=== PATIENT | male | born 1955 | race Caucasian/White ===

== ENCOUNTER 2020-02-01 19:36 | Inpatient (IN) | payer BC, SELFPAY ==
[2020-02-01 19:43] VITALS: BP 161/94; PULSE 110; RESP 20; TEMP 36.7; O2SAT 94; BMI 20.7
--- NOTE | 2020-02-01 19:59 | ED_ITS ---
HPI - Psych General: Chief Complaint: Psychiatric Symptoms Stated Complaint: SI Time Seen by Provider: 02/01/20 19:37 Source: patient Mode of arrival: ambulatory Limitations: no limitations History of Present Illness: HPI Narrative: 64-year-old male states he has been having severe depression and does not feel like living anymore. He states been having suicidal thoughts for weeks and is voluntarily wanting to be admitted. He states he also chronic alcoholic and his last drink was today. Denies any worsening or improving factors. Associated symptoms: Reports depression Review of Systems Const: Denies: fever(s), chills, body aches or change in appetite Eyes: Denies: blurry vision or eye discomfort ENMT: Denies: throat pain or dental pain Card: Denies: chest pain Resp: Denies: dyspnea GI: Denies: abdominal pain, nausea, vomiting or diarrhea : Denies: dysuria Musc: Denies: neck pain or back pain Skin/Breast: Denies: rash Neuro: Denies: headache(s) Psych: Reports: depression Ruddy/Lymph: Denies: easy bruising All/Imm: Denies: urticaria Physical Exam Const: COMMON NORMALS: no acute distress, patient oriented x3 and healthy appearing HENMT: COMMON NORMALS: normocephalic and atraumatic HEAD & SCALP: normocephalic and atraumatic Eye: COMMON NORMALS: Equal, round and reactive pupils present and EOMs intact bilaterally PUPIL: Yes Equal, round and reactive pupils present Neck/C-Spine: COMMON NORMALS: full ROM and supple Chest: COMMONS NORMALS: normal inspection of the chest and normal palpation of entire chest wall Resp: COMMON NORMALS: normal respiratory effort, No retractions, No use of accessory muscles and clear to auscultation bilaterally AUSCULTATION: clear to auscultation bilaterally Cardio: COMMON NORMALS: regular rate, regular rhythm and No murmurs present (Cardio) RATE: regular rate RHYTHM: regular rhythm GI: COMMON NORMALS: Normal to inspection, nondistended, normoactive bowel sounds present, Soft to palpation, non-tender and no masses PALPATION: Yes Soft to palpation Extremity: COMMON NORMALS: normal to inspection and full ROM Neuro: COMMON NORMALS: patient oriented x3, moves all extremities and no focal motor deficits Psych: COMMON NORMALS: mental status grossly normal, Normal thought process present and cooperative MOOD & AFFECT: Yes depressed mood THOUGHT PROCESS: Normal thought process present Skin: COMMON NORMALS: no rashes or lesions noted and no wounds GENERAL SKIN EXAM: no rashes or lesions noted MDM - Psych MDM Narrative: Medical decision making narrative: Patient presents here with suicidal ideation along with alcohol intoxication. Patient is medically cleared and well-appearing here. He did have a fall a week ago CT his head was normal. Spoke to Dr. Zurita and will admit to the psychiatric unit. Lab Data: Labs: Lab Results 02/01/20 02/01/20 Range/Units 20:05 20:05 WBC 6.5 (4.0-10.0) 10^3/ uL RBC 3.17 L (4.1-5.3) 10^6/u L Hgb 11.3 L (11.7-16.6) g/dL Hct 34.0 L (42.0-52.0) % MCV 107.3 H (80-94) fL MCH 35.6 H (28.0-34.0) pg MCHC 33.2 (30.0-36.0) g/dL RDW 13.7 (12.1-15.1) % Plt Count 206 (130-400) 10^3/c mm MPV 9.3 (7.4-10.4) fL Neut % (Auto) 35.8 % Lymph % (Auto) 46.1 % [place] % (Auto) 6.9 % Eos % (Auto) 7.9 % Baso % (Auto) 1.5 % Neut # (Auto) 2.32 (1.8-7.7) 10^3/u L Lymph # (Auto) 3.0 (0.8-4.8) 10^3/u L [place] # (Auto) 0.5 (0.2-0.9) 10^3/u L Eos # (Auto) 0.5 (0.0-0.8) 10^3/u L Baso # (Auto) 0.1 (0.0-0.1) 10^3/u L Nucleated RBC % (a uto) 0 % Nucleated RBCs # 0.0 /100WBC Sodium 147 H (136-145) mmol/L Potassium 3.9 (3.5-5.1) mmol/L Chloride 109 H (98-107) mmol/L Carbon Dioxide 22 (22-29) mmol/L Anion Gap 19.9 H (5-19) BUN 12 (8-23) mg/dL Creatinine 0.6 L (0.7-1.2) mg/dL GFR Calculation 136.1 H (90-130) mL/min Glucose 176 H (65-115) mg/dL Calculated Osmolal ity 308 H (285-295) mOsm/k g Calcium 9.4 (8.5-10.5) mg/dL Total Bilirubin 0.3 (0.15-1.2) mg/dL AST 137 H (0-40) U/L ALT 102 H (0-41) U/L Alkaline Phosphata se 105 (40-130) IU/L Total Protein 7.2 (6.6-8.7) g/dL Albumin 4.1 (3.5-5.2) g/dL Globulin 3.1 (1.3-4.6) g/dL Salicylates < 0.3 L (3-10) mg/dL Acetaminophen < 5.0 L (10-30) ug/mL Ethyl Alcohol 275 H (0-10) mg/dL Imaging Data^: CT Head: Radiologist's impression: [place] [address] CT Scan Report Signed Patient: Mason Bradshaw Unit #: [id number] : 1955 Age/Sex: 64 / M ADM Date: 02/01/20 Loc: [employer]EN [employer] Room/Bed: [facility] Attending Dr: Shamir Zurita MD Ordering Provider/Ordering MD: Paddy Hill MD Date of Service: 02/01/20 Procedure(s): CT head wo con* [id number] Accession Number(s): [id number] Report Number: [id number] PROCEDURE INFORMATION: Exam: CT Head Without Contrast Exam date and time: 02/01/2020 8:11 PM Age: 64 years old Clinical indication: Injury or trauma; Blunt trauma (contusions or hematomas); Without loss of consciousness; Patient HX: C/O fall hitting R side of head approx. 10 days ago unsure loc but C/O OCHOA; Additional info: Head injury TECHNIQUE: Imaging protocol: Computed tomography of the head without contrast. Radiation optimization: All CT scans at this facility use at least one of these dose optimization techniques: automated exposure control; mA and/or kV adjustment per patient size (includes targeted exams where dose is matched to clinical indication); or iterative reconstruction. COMPARISON: CT head wo con* [id number] 11/07/2017 11:33 AM RADIATION DOSE METRICS: Total DLP (mGy-cm): 883.75 FINDINGS: Brain: There is no evidence of intracranial hemorrhage. No abnormal extra-axial fluid collections are identified. No mass effect or midline shift is seen. Benign basal ganglia calcifications are noted. Rodas-white differentiation is preserved throughout. Cerebral ventricles: No ventriculomegaly. Bones/joints: Unremarkable. No acute fracture. Paranasal sinuses: There is sinus mucosal disease, primarily involving the left sphenoid sinus, with no definite air-fluid level identified. Mastoid air cells: There is no mastoid effusion detected. Vasculature: Atherosclerotic vascular disease is noted at the level of the skull base. Soft tissues: Unremarkable. CT/CT head wo con* [id number] IMPRESSION: No acute intracranial pathology demonstrated by CT. Discharge Plan Discharge Patient Disposition: Admitted As Inpatient Admit Provider: Shamir Zurita Clinical Impression: Suicidal ideation, Alcohol abuse Condition: Stable Coding Level of Care Code ED Tester [employer] for Chg Fwd Exam Comprehensive
[2020-02-01] MEDS: multivitamin therapeutic Tablet 1 TAB PO (20:06)
--- NOTE | 2020-02-01 20:10 | CTR_ITS ---
PROCEDURE INFORMATION: Exam: CT Head Without Contrast Exam date and time: 02/01/2020 8:11 PM Age: 64 years old Clinical indication: Injury or trauma; Blunt trauma (contusions or hematomas); Without loss of consciousness; Patient HX: C/O fall hitting R side of head approx. 10 days ago unsure loc but C/O OCHOA; Additional info: Head injury TECHNIQUE: Imaging protocol: Computed tomography of the head without contrast. Radiation optimization: All CT scans at this facility use at least one of these dose optimization techniques: automated exposure control; mA and/or kV adjustment per patient size (includes targeted exams where dose is matched to clinical indication); or iterative reconstruction. COMPARISON: CT head wo con* [id number] 11/07/2017 11:33 AM RADIATION DOSE METRICS: Total DLP (mGy-cm): 883.75 FINDINGS: Brain: There is no evidence of intracranial hemorrhage. No abnormal extra-axial fluid collections are identified. No mass effect or midline shift is seen. Benign basal ganglia calcifications are noted. Rodas-white differentiation is preserved throughout. Cerebral ventricles: No ventriculomegaly. Bones/joints: Unremarkable. No acute fracture. Paranasal sinuses: There is sinus mucosal disease, primarily involving the left sphenoid sinus, with no definite air-fluid level identified. Mastoid air cells: There is no mastoid effusion detected. Vasculature: Atherosclerotic vascular disease is noted at the level of the skull base. Soft tissues: Unremarkable. CT/CT head wo con* [id number] IMPRESSION: No acute intracranial pathology demonstrated by CT. Radiation Dose CTDIVOL = (mGy): DLP = 883.75 (mGy-cm)
[2020-02-01 20:14] LABS: Basophils # 0.1 10^3/uL (0.0-0.1); Basophils % 1.5 %; Eosinophils # 0.5 10^3/uL (0.0-0.8); Eosinophils % 7.9 %; Hemoglobin 11.3 g/dL (11.7-16.6); Lymphocytes % 46.1 %; Mean Corpuscular HGB Conc 33.2 g/dL (30.0-36.0); Mean Corpuscular Hemoglobin 35.6 pg (28.0-34.0); Mean Corpuscular Volume 107.3 fL (80-94); Mean Platelet Volume 9.3 fL (7.4-10.4); Monocytes # 0.5 10^3/uL (0.2-0.9); Monocytes % 6.9 %; Neutrophils # 2.32 10^3/uL (1.8-7.7); Neutrophils % 35.8 %; Nucleated Red Blood Cells % 0 %; Platelet Count 206 10^3/cmm (130-400); Red Blood Count 3.17 10^6/uL (4.1-5.3); Red Cell Distribution Width 13.7 % (12.1-15.1); White Blood Count 6.5 10^3/uL (4.0-10.0)
[2020-02-01 20:33] LABS: Alanine Aminotransferase 102 U/L (0-41); Albumin Level 4.1 g/dL (3.5-5.2); Alcohol Level 275 mg/dL (0-10); Alkaline Phosphatase 105 IU/L (40-130); Anion Gap 19.9 (5-19); Aspartate Amino Transferase 137 U/L (0-40); Blood Urea Nitrogen 12 mg/dL (8-23); Calcium 9.4 mg/dL (8.5-10.5); Carbon Dioxide 22 mmol/L (22-29); Chloride 109 mmol/L (98-107); Globulin 3.1 g/dL (1.3-4.6); Glomerular Filtration Rate 136.1 mL/min (90-130); Glucose 176 mg/dL (65-115); Osmolality Calculated 308 mOsm/kg (285-295); Potassium 3.9 mmol/L (3.5-5.1); Sodium 147 mmol/L (136-145); Total Bilirubin 0.3 mg/dL (0.15-1.2); Total Protein 7.2 g/dL (6.6-8.7)
--- NOTE | 2020-02-01 20:36 | PC.NURSE ---
PATIENT TO CT
[2020-02-01 20:37] LABS: Acetaminophen < 5.0 ug/mL (10-30); Salicylate < 0.3 mg/dL (3-10)
--- NOTE | 2020-02-01 21:30 | PC.NURSE ---
called report to Dorian in NPU
[2020-02-01 21:33] VITALS: BP 126/67; PULSE 86; RESP 18; O2SAT 95
[2020-02-01 21:45] VITALS: BP 122/78; PULSE 93; RESP 18; TEMP 36.6; O2SAT 96
[2020-02-01 22:00] VITALS: BP 122/78; PULSE 93; RESP 18; TEMP 36.6; O2SAT 96
[2020-02-01] MEDS: hyDROXYzine 25 mg Capsule 50 MG PO (22:40)
[2020-02-01] MEDS: trazodone 50 mg Tablet PO (22:41)
[2020-02-01 23:46] LABS: Amphetamines Screen Urine Negative (Negative); Barbiturates Screen Urine Negative (Negative); Benzodiazepines Screen Urine Negative (Negative); Cocaine Screen Urine Negative (Negative); Opiate Screen Urine Negative (Negative); PCP Screen Urine Negative (Negative); THC Screen Urine Negative (Negative)
[2020-02-02 06:00] VITALS: BP 148/66; PULSE 93; RESP 17; TEMP 36.4; O2SAT 95
[2020-02-02 06:48] LABS: Glucose Point of Care 105 mg/dL (70-110)
[2020-02-02] MEDS: fluoxetine 10 mg Capsule PO (08:25)
[2020-02-02 11:40] LABS: Glucose Point of Care 149 mg/dL (70-110)
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
[2020-02-02 14:20] VITALS: BP 111/70; PULSE 90; RESP 18; TEMP 36.7; O2SAT 99
[2020-02-02] MEDS: fluoxetine 20 mg Capsule PO (14:53)
[2020-02-02 17:12] LABS: Glucose Point of Care 108 mg/dL (70-110)
[2020-02-02 20:23] LABS: Glucose Point of Care 175 mg/dL (70-110)
[2020-02-02] MEDS: hyDROXYzine 25 mg Capsule 50 MG PO (21:31)
[2020-02-02] MEDS: trazodone 50 mg Tablet PO (21:31)
[2020-02-02] MEDS: acetaminophen 325 mg Tablet 650 MG PO (21:34)
[2020-02-02 22:00] VITALS: BP 132/68; PULSE 75; RESP 16; TEMP 36.7; O2SAT 97
[2020-02-03 06:00] VITALS: BP 122/72; PULSE 66; RESP 17; TEMP 36.8; O2SAT 96
[2020-02-03] MEDS: glimepiride 2 mg Tablet PO (06:39)
[2020-02-03 07:01] LABS: Glucose Point of Care 126 mg/dL (70-110)
[2020-02-03] MEDS: fluoxetine 20 mg Capsule PO (07:51)
[2020-02-03] MEDS: fluoxetine 10 mg Capsule PO (07:52)
[2020-02-03 11:45] LABS: Glucose Point of Care 119 mg/dL (70-110)
[2020-02-03 14:00] VITALS: BP 113/69; PULSE 79; RESP 18; TEMP 36.6; O2SAT 98
[2020-02-03 14:29] VITALS: BP 122/72; PULSE 66; RESP 17; TEMP 36.8; O2SAT 96
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
[2020-02-03 16:51] LABS: Glucose Point of Care 127 mg/dL (70-110)
== END 2020-02-03 17:46 | disposition home or self-care (01) | DRG 880 ==
LOC: ER 20:47 → NP 20:49
PROVIDERS: Admitting Provider Psychiatry & Neurology Psychiatry; Emergency Provider Emergency Medicine; Visit Provider Psychiatry & Neurology Psychiatry
DX: F41.8 Other specified anxiety disorders (principal); R45.851 Suicidal ideations; F68.8 Other specified disorders of adult personality and behavior; F10.20 Alcohol dependence, uncomplicated; E11.9 Type 2 diabetes mellitus without complications
CPT/HCPCS: 12345; 36416; 70450; 80053; 80306; 80307; 82962; 85025; 96372; 99284; J1815; J3411

== ENCOUNTER 2020-04-20 17:52 | Inpatient (IN) | payer OTHER, SELFPAY ==
[2020-04-20 18:23] VITALS: BP 163/88; PULSE 122; RESP 18; TEMP 36.7; O2SAT 96; BMI 17.3
--- NOTE | 2020-04-20 18:50 | W.ED.PSYCH ---
HPI - Psych General: Chief Complaint: Psychiatric Symptoms Stated Complaint: Stress Time Seen by Provider: 04/20/20 18:45 Source: patient Mode of arrival: ambulatory Limitations: no limitations History of Present Illness: HPI Narrative: 65-year-old male states that he has been having increasing depression and some suicidal thoughts. He is a chronic alcoholic and states he just wants to get away from drinking and from home. Patient states has been admitted to the stress unit in the past and would like to go back. He denies any specific plan. Denies any vomiting or diarrhea. He states his last drink was this morning. He has had some slight nausea. Associated symptoms: Reports depression and suicidal ideation Review of Systems Const: Denies: fever(s), chills, body aches or change in appetite Eyes: Denies: blurry vision or eye discomfort ENMT: Denies: throat pain or dental pain Card: Denies: chest pain Resp: Denies: dyspnea GI: Denies: abdominal pain, nausea, vomiting or diarrhea : Denies: dysuria Musc: Denies: neck pain or back pain Skin/Breast: Denies: rash Neuro: Denies: headache(s) Psych: Reports: depression and suicidal ideation Ruddy/Lymph: Denies: easy bruising All/Imm: Denies: urticaria Physical Exam Const: COMMON NORMALS: no acute distress, patient oriented x3 and healthy appearing HENMT: COMMON NORMALS: normocephalic and atraumatic HEAD & SCALP: normocephalic and atraumatic Eye: COMMON NORMALS: Equal, round and reactive pupils present and EOMs intact bilaterally PUPIL: Yes Equal, round and reactive pupils present Neck/C-Spine: COMMON NORMALS: full ROM and supple Chest: COMMONS NORMALS: normal inspection of the chest and normal palpation of entire chest wall Resp: COMMON NORMALS: normal respiratory effort, No retractions, No use of accessory muscles and clear to auscultation bilaterally AUSCULTATION: clear to auscultation bilaterally Cardio: COMMON NORMALS: regular rate, regular rhythm and No murmurs present (Cardio) RATE: regular rate RHYTHM: regular rhythm GI: COMMON NORMALS: Normal to inspection, nondistended, normoactive bowel sounds present, Soft to palpation, non-tender and no masses PALPATION: Yes Soft to palpation Extremity: COMMON NORMALS: normal to inspection and full ROM Neuro: COMMON NORMALS: patient oriented x3, moves all extremities and no focal motor deficits Psych: COMMON NORMALS: mental status grossly normal, Normal thought process present and cooperative THOUGHT PROCESS: Normal thought process present THOUGHT CONTENT: Yes Suicidality present Skin: COMMON NORMALS: no rashes or lesions noted and no wounds GENERAL SKIN EXAM: no rashes or lesions noted MDM - Psych MDM Narrative: Medical decision making narrative: Mason presents here with suicidal ideations. Patient voluntarily wants to get help. He does have a history of alcohol abuse as well. I spoke to psychiatrist Dr. Zurita and will admit patient to the psych cazares. He is well-appearing here and is medically cleared. Lab Data: Labs: Lab Results 04/20/20 04/20/20 04/20/20 Range/Units 18:53 18:53 18:53 WBC 5.8 (4.0-10.0) 10^3/ uL RBC 5.01 (4.1-5.3) 10^6/u L Hgb 16.8 H (11.7-16.6) g/dL Hct 48.7 (42.0-52.0) % MCV 97.2 H (80-94) fL MCH 33.5 (28.0-34.0) pg MCHC 34.5 (30.0-36.0) g/dL RDW 11.9 L (12.1-15.1) % Plt Count 180 (130-400) 10^3/c mm MPV 9.7 (7.4-10.4) fL Neut % (Auto) 49.5 % Lymph % (Auto) 36.9 % [place]affee % (Auto) 10.0 % Eos % (Auto) 1.5 % Baso % (Auto) 1.9 % Neut # (Auto) 2.88 (1.8-7.7) 10^3/u L Lymph # (Auto) 2.2 (0.8-4.8) 10^3/u L [place] # (Auto) 0.6 (0.2-0.9) 10^3/u L Eos # (Auto) 0.1 (0.0-0.8) 10^3/u L Baso # (Auto) 0.1 (0.0-0.1) 10^3/u L Nucleated RBC % (a uto) 0 % Nucleated RBCs # 0.0 /100WBC Sodium 136 (136-145) mmol/L Potassium 3.8 (3.5-5.1) mmol/L Chloride 94 L (98-107) mmol/L Carbon Dioxide 25 (22-29) mmol/L Anion Gap 20.8 H (5-19) BUN 15 (8-23) mg/dL Creatinine 0.6 L (0.7-1.2) mg/dL GFR Calculation 135.6 H (90-130) mL/min Glucose 329 H (65-115) mg/dL Calculated Osmolal ity 296 H (285-295) mOsm/k g Calcium 9.9 (8.5-10.5) mg/dL Total Bilirubin 0.2 (0.15-1.2) mg/dL AST 92 H (0-40) U/L ALT 79 H (0-41) U/L Alkaline Phosphata se 117 (40-130) IU/L Total Protein 7.5 (6.6-8.7) g/dL Albumin 4.2 (3.5-5.2) g/dL Globulin 3.3 (1.3-4.6) g/dL Urine Color (Yellow) Urine Appearance (CLEAR) Urine pH (5-7) Ur Specific Gravit y (1.005-1.030) Urine Protein (Negative) Urine Glucose (UA) (Normal) Urine Ketones (Negative) Urine Blood (Negative) Urine Nitrate (Negative) Urine Bilirubin (Negative) Urine Urobilinogen (Negative) mg/dL Ur Leukocyte Sarah ase (Negative) Salicylates < 0.3 L (3-10) mg/dL Urine Opiates Scre en Negative (Negative) ng/mL Acetaminophen < 5.0 L (10-30) ug/mL Ur Barbiturates Sc reen Negative (Negative) ng/mL Ur Phencyclidine S crn Negative (Negative) ng/mL Ur Amphetamines Sc reen Negative (Negative) ng/mL U Benzodiazepines Scrn Negative (Negative) ng/mL Urine Cocaine Scre en Negative (Negative) ng/mL U Marijuana (THC) Screen Negative (Negative) ng/mL Ethyl Alcohol 137 H (0-10) mg/dL 04/20/20 Range/Units 18:53 WBC (4.0-10.0) 10^3/ uL RBC (4.1-5.3) 10^6/u L Hgb (11.7-16.6) g/dL Hct (42.0-52.0) % MCV (80-94) fL MCH (28.0-34.0) pg MCHC (30.0-36.0) g/dL RDW (12.1-15.1) % Plt Count (130-400) 10^3/c mm MPV (7.4-10.4) fL Neut % (Auto) % Lymph % (Auto) % [place] % (Auto) % Eos % (Auto) % Baso % (Auto) % Neut # (Auto) (1.8-7.7) 10^3/u L Lymph # (Auto) (0.8-4.8) 10^3/u L [place] # (Auto) (0.2-0.9) 10^3/u L Eos # (Auto) (0.0-0.8) 10^3/u L Baso # (Auto) (0.0-0.1) 10^3/u L Nucleated RBC % (a uto) % Nucleated RBCs # /100WBC Sodium (136-145) mmol/L Potassium (3.5-5.1) mmol/L Chloride (98-107) mmol/L Carbon Dioxide (22-29) mmol/L Anion Gap (5-19) BUN (8-23) mg/dL Creatinine (0.7-1.2) mg/dL GFR Calculation (90-130) mL/min Glucose (65-115) mg/dL Calculated Osmolal ity (285-295) mOsm/k g Calcium (8.5-10.5) mg/dL Total Bilirubin (0.15-1.2) mg/dL AST (0-40) U/L ALT (0-41) U/L Alkaline Phosphata se (40-130) IU/L Total Protein (6.6-8.7) g/dL Albumin (3.5-5.2) g/dL Globulin (1.3-4.6) g/dL Urine Color Yellow (Yellow) Urine Appearance Clear (CLEAR) Urine pH 5 (5-7) Ur Specific Gravit y 1.025 (1.005-1.030) Urine Protein Neg (Negative) Urine Glucose (UA) 4+ H (Normal) Urine Ketones 1+ H (Negative) Urine Blood Neg (Negative) Urine Nitrate Negative (Negative) Urine Bilirubin Neg (Negative) Urine Urobilinogen Norm (Negative) mg/dL Ur Leukocyte Sarah ase Negative (Negative) Salicylates (3-10) mg/dL Urine Opiates Scre en (Negative) ng/mL Acetaminophen (10-30) ug/mL Ur Barbiturates Sc reen (Negative) ng/mL Ur Phencyclidine S crn (Negative) ng/mL Ur Amphetamines Sc reen (Negative) ng/mL U Benzodiazepines Scrn (Negative) ng/mL Urine Cocaine Scre en (Negative) ng/mL U Marijuana (THC) Screen (Negative) ng/mL Ethyl Alcohol (0-10) mg/dL Discharge Plan Discharge Patient Disposition: Admitted As Inpatient Clinical Impression: Suicidal ideation, Alcohol abuse Condition: Stable Coding Level of Care Code ED Competency Evaluated Nurse Aide for Crys Fwd Exam Comprehensive
[2020-04-20 19:08] LABS: Add Urine Microscopic? NO
[2020-04-20] MEDS: LORazepam 2 mg/mL INJ 1 mL 1 MG IVP (19:08)
[2020-04-20 19:11] LABS: Basophils # 0.1 10^3/uL (0.0-0.1); Basophils % 1.9 %; Eosinophils # 0.1 10^3/uL (0.0-0.8); Eosinophils % 1.5 %; Hematocrit 48.7 % (42.0-52.0); Hemoglobin 16.8 g/dL (11.7-16.6); Lymphocytes # 2.2 10^3/uL (0.8-4.8); Lymphocytes % 36.9 %; Mean Corpuscular HGB Conc 34.5 g/dL (30.0-36.0); Mean Corpuscular Hemoglobin 33.5 pg (28.0-34.0); Mean Corpuscular Volume 97.2 fL (80-94); Mean Platelet Volume 9.7 fL (7.4-10.4); Monocytes # 0.6 10^3/uL (0.2-0.9); Neutrophils # 2.88 10^3/uL (1.8-7.7); Neutrophils % 49.5 %; Nucleated Red Blood Cells % 0 %; Platelet Count 180 10^3/cmm (130-400); Red Blood Count 5.01 10^6/uL (4.1-5.3); Red Cell Distribution Width 11.9 % (12.1-15.1); White Blood Count 5.8 10^3/uL (4.0-10.0)
[2020-04-20 19:16] LABS: Bilirubin Urine Neg (Negative); Blood Urine Neg (Negative); Glucose Urine UA 4+ (Normal); Ketones Urine 1+ (Negative); Leukocyte Esterase Urine Negative (Negative); Nitrate Urine Negative (Negative); Protein Urine Neg (Negative); Specific Gravity, Urine 1.025 (1.005-1.030); Urine Appearance Clear (CLEAR); Urine Color Yellow (Yellow); Urobilinogen Urine Norm (Negative); pH Urine 5 (5-7)
[2020-04-20 19:19] LABS: Amphetamines Screen Urine Negative (Negative); Barbiturates Screen Urine Negative (Negative); Benzodiazepines Screen Urine Negative (Negative); Cocaine Screen Urine Negative (Negative); Opiate Screen Urine Negative (Negative); PCP Screen Urine Negative (Negative); THC Screen Urine Negative (Negative)
[2020-04-20 19:38] LABS: Alanine Aminotransferase 79 U/L (0-41); Albumin Level 4.2 g/dL (3.5-5.2); Alcohol Level 137 mg/dL (0-10); Alkaline Phosphatase 117 IU/L (40-130); Anion Gap 20.8 (5-19); Aspartate Amino Transferase 92 U/L (0-40); Blood Urea Nitrogen 15 mg/dL (8-23); Calcium 9.9 mg/dL (8.5-10.5); Carbon Dioxide 25 mmol/L (22-29); Chloride 94 mmol/L (98-107); Globulin 3.3 g/dL (1.3-4.6); Glomerular Filtration Rate 135.6 mL/min (90-130); Glucose 329 mg/dL (65-115); Osmolality Calculated 296 mOsm/kg (285-295); Potassium 3.8 mmol/L (3.5-5.1); Sodium 136 mmol/L (136-145); Total Bilirubin 0.2 mg/dL (0.15-1.2); Total Protein 7.5 g/dL (6.6-8.7)
[2020-04-20 19:40] LABS: Acetaminophen < 5.0 ug/mL (10-30); Salicylate < 0.3 mg/dL (3-10)
[2020-04-20 20:25] VITALS: BP 145/85; PULSE 104; RESP 14; O2SAT 96
[2020-04-20 21:31] VITALS: BP 134/76; PULSE 120; RESP 17; TEMP 36.9; O2SAT 96
[2020-04-20 21:32] LABS: Glucose Point of Care 334 mg/dL (70-110)
[2020-04-20 22:00] VITALS: BP 134/76; PULSE 120; RESP 17; TEMP 36.9; O2SAT 96
[2020-04-21 06:00] VITALS: BP 147/87; PULSE 99; RESP 18; TEMP 36.7; O2SAT 95
[2020-04-21 07:38] LABS: Glucose Point of Care 158 mg/dL (70-110)
[2020-04-21] MEDS: ondansetron 4 MG Tablet PO (08:27)
[2020-04-21] MEDS: atorvastatin 40 mg Tablet 20 MG PO (08:27)
[2020-04-21] MEDS: fluoxetine 20 mg Capsule PO (08:27)
[2020-04-21 11:40] LABS: Glucose Point of Care 152 mg/dL (70-110)
[2020-04-21 14:00] VITALS: BP 137/83; PULSE 94; RESP 18; TEMP 36.7; O2SAT 96
[2020-04-21] MEDS: acetaminophen 325 mg Tablet 650 MG PO (16:32)
[2020-04-21 16:35] LABS: Glucose Point of Care 128 mg/dL (70-110)
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
[2020-04-21 20:05] LABS: Glucose Point of Care 145 mg/dL (70-110)
[2020-04-21 20:08] VITALS: BP 128/80; PULSE 89; RESP 18; TEMP 36.6; O2SAT 96
[2020-04-21] MEDS: trazodone 50 mg Tablet PO (23:10)
[2020-04-21] MEDS: hyDROXYzine 25 mg Capsule 50 MG PO (23:10)
[2020-04-22 06:00] VITALS: BP 99/66; PULSE 116; RESP 15; TEMP 37.2; O2SAT 96
[2020-04-22 06:35] LABS: Glucose Point of Care 139 mg/dL (70-110)
[2020-04-22] MEDS: fluoxetine 20 mg Capsule PO (08:15)
[2020-04-22] MEDS: atorvastatin 40 mg Tablet 20 MG PO (08:15)
[2020-04-22 11:20] LABS: Glucose Point of Care 157 mg/dL (70-110)
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
[2020-04-22 16:25] VITALS: BP 99/66; PULSE 116; RESP 15; TEMP 37.2; O2SAT 96
[2020-04-22 16:42] LABS: Glucose Point of Care 143 mg/dL (70-110)
== END 2020-04-22 17:30 | disposition home or self-care (01) | DRG 881 ==
LOC: ER 20:18 → NP 20:54
PROVIDERS: Nurse Practitioner Family; Admitting Provider Psychiatry & Neurology Psychiatry; Emergency Provider Emergency Medicine; Visit Provider Psychiatry & Neurology Psychiatry
DX: F32.9 Major depressive disorder, single episode, unspecified (principal); R45.851 Suicidal ideations; F10.10 Alcohol abuse, uncomplicated; Z81.1 Family history of alcohol abuse and dependence; E11.9 Type 2 diabetes mellitus without complications; F41.8 Other specified anxiety disorders; Z63.0 Problems in relationship with spouse or partner
CPT/HCPCS: 12345; 36416; 80053; 80306; 80307; 81003; 82962; 85025; 96372; 99284; J1815; J2060; J3411; Q0162

== ENCOUNTER 2022-03-01 07:19 | Outpatient (CLI) | payer MEDICARE, SELFPAY ==
--- NOTE | 2022-03-01 07:36 | CT_ITS ---
WS: [id number] CT ABDOMEN PELVIS TECHNIQUE: Contrast-enhanced CT of the abdomen and pelvis with coronal and sagittal reformatted image s. CLINICAL INFORMATION: INDIRECT INGUINAL HERNIIA COMPARISON: CT 2019 DLP: 1061.[address] scans at [facility] use at least one of these dose optimization techniques: automated e xposure control; mA and/or kV adjustment per patient size (includes targeted exams where dose is matc hed to clinical indication); or iterative reconstruction. FINDINGS: No recurrent hernia in the RIGHT inguinal region. No direct or indirect inguinal hernias visualized b ilaterally. Tiny fat-containing umbilical hernia. No ventral abdominal wall hernias. Urine distended bladder. Prominent prostate measuring 4.7 cm with calcifications. Normal sigmoid colon. Dependent atelectasis in the lung bases. Mild diffuse fatty infiltration the liver. Normal portal vei n and splenic vein. Normal gallbladder. Normal GE junction. Splenic granulomas. Adrenal glands are no rmal. Normal renal parenchymal enhancement. No hydronephrosis. Moderate aortic atheromatous disease. Slightly ectatic distal abdominal aorta measuring 2.5 cm in maximum AP dimension. Normal pancreatic p arenchymal enhancement. Degenerative endplate-type changes at L2-L3 and L5-S1 with endplate sclerosis. Lumbar curve. CT/CT abdomen pelvis w con* [id number] IMPRESSION: 1. No evidence of recurrence inguinal hernia. 2. Tiny fat-containing umbilical hernia. 3. Moderate aortic atheromatous disease with slightly ectatic distal abdominal aorta measuring 2.5 cm in maximum dimension. 4. Enlarged prostate measuring 4.7 CCM. Recommend correlation PSA. 5. No other remarkable findings.
[2022-03-01] MEDS: iohexol 350 mg/mL 100 mL Btl IV (09:07)
[2022-03-01] MEDS: iohexol 350 mg/mL 100 mL Btl PO (09:08)
== END 2022-03-01 07:20 | disposition home or self-care (01) ==
PROVIDERS: PCP Physician Assistant; Visit Provider Physician Assistant
DX: K40.90 Unilateral inguinal hernia, without obstruction or gangrene, not specified as recurrent (principal); I70.0 Atherosclerosis of aorta; N40.0 Benign prostatic hyperplasia without lower urinary tract symptoms; I77.819 Aortic ectasia, unspecified site
CPT/HCPCS: 74177; Q9967

== ENCOUNTER 2023-01-25 13:54 | Emergency (ER) | payer MEDICARE, SELFPAY ==
[2023-01-25 14:01] VITALS: BP 164/96; PULSE 79; RESP 16; TEMP 36.8; O2SAT 98
[2023-01-25 14:10] LABS: Glucose Point of Care 78 mg/dL (70-110)
--- NOTE | 2023-01-25 14:22 | W.ED.EXTPRO ---
HPI - Extremity Problem General: Chief complaint: Back Pain/Injury Stated complaint: lower back pain Time Seen by Provider: 01/25/23 14:15 History of Present Illness: 67-year-old male patient comes in today with complaints of lower back pain radiating down both legs with worse on the left. Patient is also been having some irregular blood sugars. Patient routinely takes glipizide 5 mg, atorvastatin 20 mg, meloxicam 15 mg, ibuprofen, and Excedrin. Patient appears nontoxic. Patient appears in mild pain at rest. Patient reports increased pain with walking and difficulty with sitting and laying down. Patient moves all extremities well. Patient is able to ambulate without difficulty. Associated symptoms: Deny chest pain or fever(s) Review of Systems General: Reports: 10 or more systems reviewed and unremarkable except in HPI and below Const: Denies: fever(s) Card: Denies: chest pain Resp: Denies: dyspnea GI: Denies: nausea, vomiting, diarrhea or constipation : Reports: dysuria (Burning) and other (Change in urinary character) Musc: Reports: back pain Neuro: Reports: numbness in extremities Physical Exam Const: COMMON NORMALS: alert HENMT: COMMON NORMALS: normocephalic HEAD & SCALP: normocephalic MOUTH: Normal oral and palatal mucosa present Neck/C-Spine: COMMON NORMALS: full ROM Chest: COMMONS NORMALS: normal inspection of the chest Resp: COMMON NORMALS: normal respiratory effort and clear to auscultation bilaterally AUSCULTATION: clear to auscultation bilaterally Cardio: COMMON NORMALS: regular rate and regular rhythm RATE: regular rate RHYTHM: regular rhythm Back/Pelvis: SACROILIAC JOINTS: Yes SI joint(s) abnormal SI joint details: tender to palpation (Left side) Extremity: COMMON NORMALS: no pedal edema Neuro: SENSORIUM/ORIENTATION: Yes alert Skin: COMMON NORMALS: turgor normal GENERAL SKIN EXAM: turgor normal Course Vital Signs: Vital signs: Vital Signs Temperature 98.2 F 01/25/23 14:01 Pulse Rate 77 01/25/23 16:34 Respiratory Rate 18 01/25/23 16:34 Blood Pressure 164/96 01/25/23 14:01 Pulse Oximetry 100 01/25/23 16:34 Oxygen Delivery Me thod Room Air 01/25/23 14:46 MDM - Extremity (Nontraumatic) Medical Decision Making Patient presents today with complaints of low back pain radiating down both sides worse on the left. On exam patient has tenderness of sacroiliac joint on the left side. Abdomen soft nontender. Vital signs are normal except for some mild elevation in blood pressure. Differential diagnosis includes not limited to diabetic neuropathy, intervertebral disc disease, facet arthropathy, urinary tract infection, discitis. CBC CMP and urinalysis were unremarkable. CT of the lumbar spine had prominent disc bulge or herniation at L3-L4 with spinal canal stenosis and bilateral neural foraminal stenosis. Recommended patient follow-up with Dr. Alva for further evaluation and treatment for lumbar radiculopathy. Patient be started on some gabapentin for neuropathy and tramadol for pain. Patient was recommended to follow-up with primary care for further medications until follow-up with specialist. Case management was requested to assist with follow-up appointment with Dr. Alva's office. Lab Data 01/25/23 15:17 01/25/23 15:17 Radiology Impressions Lumbar Spine CT 01/25/23 14:28 IMPRESSION: 1. Prominent disc bulge or herniation at L3-L4 with severe spinal canal stenosis and severe bilateral neural foraminal stenosis. 2. Moderate multilevel DJD throughout the lumbar spine as described in the body of the report. Laboratory Results WBC 6.00 10^3/uL (3.29-11.43) 01/25/23 15:17 RBC 4.65 10^6/uL (3.85-5.65) 01/25/23 15:17 Hgb 16.10 g/dL (11.27-16.99) 01/25/23 15:17 Hct 46.8 % (37-53) 01/25/23 15:17 MCV 100.6 fl (82-101) 01/25/23 15:17 MCH 34.6 pg (27-33) H 01/25/23 15:17 MCHC 34.4 g/dL (30-55) 01/25/23 15:17 RDW 12.2 % (12.1-15.1) 01/25/23 15:17 Plt Count 148 10^3/cmm (157-399) L 01/25/23 15:17 MPV 9.8 fL (7.4-10.4) 01/25/23 15:17 Neut % (Auto) 58.5 % 01/25/23 15:17 Lymph % (Auto) 27.8 % 01/25/23 15:17 [place] % (Auto) 8.8 % 01/25/23 15:17 Eos % (Auto) 3.8 % 01/25/23 15:17 Baso % (Auto) 0.8 % 01/25/23 15:17 Neut # (Auto) 3.50 10^3/uL (1.8-7.7) 01/25/23 15:17 Lymph # (Auto) 1.7 10^3/uL (0.8-4.8) 01/25/23 15:17 [place] # (Auto) 0.5 10^3/uL (0.2-0.9) 01/25/23 15:17 Eos # (Auto) 0.2 10^3/uL (0.0-0.8) 01/25/23 15:17 Baso # (Auto) 0.1 10^3/uL (0.0-0.1) 01/25/23 15:17 Nucleated RBC % (auto) 0 % 01/25/23 15:17 Nucleated RBCs # 0.0 /100WBC 01/25/23 15:17 Sodium 137 mmol/L (136-145) 01/25/23 15:17 Potassium 4.0 mmol/L (3.5-5.1) 01/25/23 15:17 Chloride 99 mmol/L (98-107) 01/25/23 15:17 Carbon Dioxide 28 mmol/L (22-29) 01/25/23 15:17 Anion Gap 14.0 (5-19) 01/25/23 15:17 BUN 12 mg/dL (8-23) 01/25/23 15:17 Creatinine 0.7 mg/dL (0.7-1.2) 01/25/23 15:17 GFR Calculation 112.8 mL/min (90-130) 01/25/23 15:17 Glucose 115 mg/dL (65-115) 01/25/23 15:17 POC Glucose 78 mg/dL (70-110) 01/25/23 14:06 Calculated Osmolality 285 mOsm/kg (285-295) 01/25/23 15:17 Calcium 9.8 mg/dL (8.5-10.5) 01/25/23 15:17 Total Bilirubin 0.5 mg/dL (0.15-1.2) 01/25/23 15:17 AST 27 U/L (0-40) 01/25/23 15:17 ALT 20 U/L (0-41) 01/25/23 15:17 Alkaline Phosphatase 86 U/L (40-130) 01/25/23 15:17 Total Protein 7.5 g/dL (6.6-8.7) 01/25/23 15:17 Albumin 4.6 g/dL (3.5-5.2) 01/25/23 15:17 Globulin 2.9 g/dL (1.3-4.6) 01/25/23 15:17 Urine Color Yellow (Yellow) 01/25/23 14:39 Urine Appearance Clear (CLEAR) 01/25/23 14:39 Urine pH 7 (5-7) 01/25/23 14:39 Ur Specific [place] 1.015 (1.005-1.030) 01/25/23 14:39 Urine Protein Neg (Negative) 01/25/23 14:39 Urine Glucose (UA) Norm (Normal) 01/25/23 14:39 Urine Ketones Negative (Negative) 01/25/23 14:39 Urine Blood Neg (Negative) 01/25/23 14:39 Urine Nitrate Negative (Negative) 01/25/23 14:39 Urine Bilirubin Neg (Negative) 01/25/23 14:39 Urine Urobilinogen Norm mg/dL (Negative) 01/25/23 14:39 Ur Leukocyte Esterase Negative (Negative) 01/25/23 14:39 All radiology interpretation(s) finalized by discharge Discharge Plan Discharge Patient Disposition: Home Clinical Impression: Central stenosis of spinal canal, Lumbar radiculopathy Condition: Stable Prescriptions: New gabapentin 300 mg capsule 300 mg PO TID Qty: 30 0RF tramadol 50 mg tablet 50 mg PO Q8H PRN (Reason: pain (scale score 7-10)) Qty: 15 0RF No Action atorvastatin 20 mg Tablet 20 mg PO QAM trazodone 50 mg Tablet 50 mg PO BEDTIME PRN (Reason: Sleep) 30 Days Qty: 30 1RF meloxicam 15 mg tablet 15 mg PO QAM sildenafil (pulm.hypertension) 20 mg tablet 20 mg PO QAM fluoxetine 20 mg capsule 20 mg PO QAM glipizide 5 mg tablet 5 mg PO QAM Discharge Orders: Discharge ED (Routine); Ordered 01/25/23 Ordered By: Benson Stokes Referrals: Caden Alva DO [Physician] - Adriana Cardona PA [Primary Care Provider] - Discharge Diet: Usual diet Discharge Activity: Increase activity as tolerated Patient Instructions: Lumbar Spinal Stenosis (ED), Opioid Safety, Pain Management Activity Restrictions/Additional Instructions: Light activity. Take medications as directed. Take gabapentin 300 mg 3 times a day for neuropathic pain. Use tramadol 50 mg 1 tablet every 8 hours as needed for severe pain. You can continue with routine medications such as meloxicam and acetaminophen to help control pain. Follow-up with spinal adult daycare coordinator for further evaluation and treatment. Coding Level of Care Code ED Director Private for [facility]
--- NOTE | 2023-01-25 14:28 | CTR_ITS ---
PROCEDURE INFORMATION: Exam: CT Lumbar Spine Without Contrast Exam date and time: 01/25/2023 3:40 PM Age: 67 years old Clinical indication: Low back pain; Additional info: Increase back pain, lower ext numbness TECHNIQUE: Imaging protocol: Computed tomography of the lumbar spine without contrast. Radiation optimization: All CT scans at this facility use at least one of these dose optimization techniques: automated exposure control; mA and/or kV adjustment per patient size (includes targeted exams where dose is matched to clinical indication); or iterative reconstruction. REPORTING DATA: Count of CT and Cardiac NM exams in prior 12 months: This patient has received [address] and 0 known cardiac nuclear medicine studies in the 12 months prior to the current study. COMPARISON: CR XR lumbar spine min 4V [id number] 06/01/2021 9:15 AM RADIATION DOSE METRICS: Total DLP (mGy-cm): 537 FINDINGS: Bones/joints: Moderate dextroscoliosis of the lumbar spine. Moderate multilevel degenerative disc disease throughout the lumbar spine. This is most evident at L2-L3 and L5-S1. There is also moderate facet arthropathy at these levels. There is a prominent disc bulge or herniation at L3-L4 with severe spinal canal stenosis at this level. There is also severe bilateral neural foraminal stenosis at this level. Disc bulges noted to a lesser degree at L4-L5 and L5-S1. No acute fracture. No spinal malalignment. Soft tissues: Unremarkable. CT/CT lumbar spine wo con* [id number] IMPRESSION: 1. Prominent disc bulge or herniation at L3-L4 with severe spinal canal stenosis and severe bilateral neural foraminal stenosis. 2. Moderate multilevel DJD throughout the lumbar spine as described in the body of the report.
[2023-01-25 14:46] VITALS: PULSE 80; RESP 18; O2SAT 99
[2023-01-25 14:48] LABS: Add Urine Microscopic? NO; Charge for UA Resulting for Rev
[2023-01-25 14:55] LABS: Bilirubin Urine Neg (Negative); Blood Urine Neg (Negative); Glucose Urine UA Norm (Normal); Ketones Urine Negative (Negative); Leukocyte Esterase Urine Negative (Negative); Nitrate Urine Negative (Negative); Protein Urine Neg (Negative); Specific Gravity, Urine 1.015 (1.005-1.030); Urine Appearance Clear (CLEAR); Urine Color Yellow (Yellow); Urobilinogen Urine Norm (Negative); pH Urine 7 (5-7)
[2023-01-25 15:26] LABS: Basophils # 0.1 10^3/uL (0.0-0.1); Basophils % 0.8 %; Eosinophils # 0.2 10^3/uL (0.0-0.8); Eosinophils % 3.8 %; Hematocrit 46.8 % (37-53); Lymphocytes # 1.7 10^3/uL (0.8-4.8); Lymphocytes % 27.8 %; Mean Corpuscular HGB Conc 34.4 g/dL (30-55); Mean Corpuscular Hemoglobin 34.6 pg (27-33); Mean Corpuscular Volume 100.6 fl (82-101); Mean Platelet Volume 9.8 fL (7.4-10.4); Monocytes # 0.5 10^3/uL (0.2-0.9); Monocytes % 8.8 %; Neutrophils % 58.5 %; Nucleated Red Blood Cells % 0 %; Platelet Count 148 10^3/cmm (157-399); Red Blood Count 4.65 10^6/uL (3.85-5.65); Red Cell Distribution Width 12.2 % (12.1-15.1)
[2023-01-25 15:49] LABS: Alanine Aminotransferase 20 U/L (0-41); Albumin Level 4.6 g/dL (3.5-5.2); Alkaline Phosphatase 86 U/L (40-130); Aspartate Amino Transferase 27 U/L (0-40); Blood Urea Nitrogen 12 mg/dL (8-23); Calcium 9.8 mg/dL (8.5-10.5); Carbon Dioxide 28 mmol/L (22-29); Chloride 99 mmol/L (98-107); Globulin 2.9 g/dL (1.3-4.6); Glomerular Filtration Rate 112.8 mL/min (90-130); Glucose 115 mg/dL (65-115); Osmolality Calculated 285 mOsm/kg (285-295); Sodium 137 mmol/L (136-145); Total Bilirubin 0.5 mg/dL (0.15-1.2); Total Protein 7.5 g/dL (6.6-8.7)
[2023-01-25] MEDS: gabapentin 300 mg Capsule PO (16:33)
[2023-01-25] MEDS: TRAMadol 50 mg Tablet PO (16:33)
[2023-01-25 16:34] VITALS: PULSE 77; RESP 18; O2SAT 100
--- NOTE | 2023-01-26 08:21 | PC.SOCIAL ---
Ortho Referral Referral to clinic at this time. Clinic to contact patient with appt date/time.
== END 2023-01-25 16:35 | disposition home or self-care (01) ==
PROVIDERS: Emergency Provider Nurse Practitioner Family; PCP Physician Assistant
DX: M48.061 Spinal stenosis, lumbar region without neurogenic claudication (principal); M51.16 Intervertebral disc disorders with radiculopathy, lumbar region; Z79.84 Long term (current) use of oral hypoglycemic drugs
CPT/HCPCS: 36415; 36416; 72131; 80053; 81003; 82962; 85025; 99284

== ENCOUNTER → 2023-02-15 09:09 | Outpatient (BNVA) | payer MEDICARE, SELFPAY | PROVIDERS: PCP Physician Assistant; Referring Provider Nurse Practitioner Family; Visit Provider Orthopaedic Surgery | DX: M54.16 Radiculopathy, lumbar region (principal); M54.9 Dorsalgia, unspecified | CPT/HCPCS: 72100; 99204 ==

== ENCOUNTER 2023-02-20 07:45 | Outpatient (CLI) | payer MEDICARE, SELFPAY ==
--- NOTE | 2023-02-20 | ECG_ITS ---
[facility] Test Date: 2023-02-20 Pat Name: Mason Bradshaw Department: Room: Gender: Male Ticket Dispatcher: : 1955 Requested By: Adriana Velasquez Order Number: [id number] Cuauhtemoc MD: Jose A Esqueda M.D. Interpretive Statements NAME OF STUDY: LEXISCAN SESTAMIBI STRESS TEST INDICATION: Chest Pain, PROCEDURE: At the baseline, the EKG revealed normal sinus rhythm with a normal ST Ts. The baseline heart was 60 bpm with a blood pressue of 168/87 mm of Hg Lexiscan was infused over a period of 20 seconds. A total of 0.4 milligrams of Lexiscan was infused. The stress phase was continued for a total of 5 minutes. Heart rate at the end of the stress phase was 73 bpm with a blood pressure 157/94 mm of Hg. The EKG at the peak infusion revealed several no significant changes. Sestamibi was injected 20 seconds after the Lexiscan infusion. Heart rate at the end of the recovery phase was 77 bpm with a blood pressure of 161/98 mm of Hg. CONCLUSION: 1. No significant EKG changes with the LexiScan infusion 2. No LexiScan induced chest pain or cardiac arrhythmia 3. Normal blood pressure and heart rate response 4. Sestamibi/sestamibi perfusion scan pending; see separate report. Electronically Signed On 02-24-2023 13:50:37 MINGLER OPERATOR by Jose A Esqueda M.D. [id number]
--- NOTE | 2023-02-20 08:00 | NMCV_ITS ---
NM leanna perf SPECT r/s* [id number] Danish Bradshawncer Age: 67 Gender: M : 1955 Exam Date: 02/20/2023 09:00 Ordering Phys: Adriana Cardona Technologist: DALI Perez Exam Location: [facility] Indications: CHEST PAIN STRESS TEST Please see separate stress test report in [facility] for full findings IMAGE PROTOCOL Rest/Stress 1 Lexiscan Day Radiopharmaceutical Dose (mCi) Administration Site Administered by Rest: Tc-99m 10.6 IV DALI Cook Sestamibi Stress:Tc-99m 32.4 IV DALI Cook Sestamibi Rest: 20-Feb-2023 60 Discovery 630 Stress: 20-Feb-2023 30 Discovery 630 0.4mg Lexiscan. Images obtained in supine and prone position. SPECT RESULTS Technical Quality: Excellent Raw Data Analysis: Normal Image Corrections: No attenuation or motion correction applied Summed Stress Score: 10 Summed Rest Score: 8 Summed Difference Score: 2 PERFUSION FINDINGS Moderate area of moderate to severely decreased aseptic in the basal mid and apical inferior, mid inferoseptal, mid inferolateral regions. Some reversibility was noted in the mid inferior and mid inferolateral regions. FUNCTIONAL RESULTS (calculated via Gated SPECT) Stress Image LV EF (%): 66 Stress EDV (mL):96 TID: 1 Stress ESV (mL):33 FUNCTIONAL FINDINGS: Segmental wall motion analysis revealing no gross wall motion abnormalities IMPRESSIONS 1. Myocardial perfusion imaging revealing moderate area of moderate to severely decreased persistent tracer uptake in the inferior, inferoseptal and inferolateral regions with some small areas of reversible defect in the mid inferior and mid flows lateral regions suggesting myocardial scarring, predominantly in the distribution of the right coronary artery with some involvement of the circumflex artery. Areas of very small areas of reversibility testing possible elaine-infarction ischemia. 2. Normal LV ejection fraction 66%. 3. LV wall motion analysis revealing no gross wall motion abnormalities. 4. Normal LV volume No similar previous studies are available for comparison Dr Jose A Esqueda MD FAC (Electronically Signed) Final Date: 20 February 2023 12:50 S
[2023-02-20] MEDS: regadenoson 0.4 Mg/5 ml Syringe IVP (09:33)
[2023-02-20 09:48] VITALS: BP 161/98; PULSE 78
== END 2023-02-20 07:46 | disposition home or self-care (01) ==
PROVIDERS: PCP Physician Assistant; Visit Provider Physician Assistant
DX: R07.9 Chest pain, unspecified (principal)
CPT/HCPCS: 36415; 78452; 93017; 96374; A9500; J2785

== ENCOUNTER 2023-03-02 08:11 | Outpatient (RCR) | payer MEDICARE, SELFPAY | END 2023-03-15 23:59 | disposition home or self-care (01) | LOC: SPT 08:11 | PROVIDERS: PCP Physician Assistant; Visit Provider Orthopaedic Surgery | DX: M54.50 Low back pain, unspecified (principal) | CPT/HCPCS: 97161 ==

== ENCOUNTER 2023-03-19 07:38 | Outpatient (CLI) | payer MEDICARE, SELFPAY ==
--- NOTE | 2023-03-19 07:45 | MR_ITS ---
WS: [id number] MRI LUMBAR SPINE NONCONTRAST TECHNIQUE: Sagittal T1, T2 and STIR imaging. Axial T1 and T2 imaging. CLINICAL INFORMATION: SPINAL STENOSIS OF LUMBAR REGION COMPARISON: None. FINDINGS: Mild lumbar curve. No acute compression. Disc osteophyte protrusions in the cervical spine C5-C6 and C6-C7 worse at C6-7 with indentation on the cervical cord. Small disc protrusion in the thoracic spin e with slight contact of the thoracic cord at T8-T9. L1-L2: Mild disc bulging with a small central protrusion. Narrowing of the subarticular recess bilate rally. Mild facet arthropathy. Mild RIGHT greater than LEFT foraminal narrowing. L2-L3: Mild disc bulging. Moderate facet arthropathy with ligamentum flavum hypertrophy. Moderate verona rowing of the thecal sac with prominent epidural fat. Moderate LEFT foraminal narrowing. L3-L4: Moderate to severe narrowing of the thecal sac due to disc bulging with facet arthropathy and ligamentum flavum hypertrophy. Prominent epidural fat. Narrowing of the subarticular recess bilateral ly. Moderate to severe LEFT and mild to moderate RIGHT foraminal narrowing. L4-L5: Mild annular bulging with slight impingement traversing L5 nerve roots bilaterally and mild ce ntral canal stenosis. Moderate facet arthropathy. Mild LEFT greater than RIGHT foraminal narrowing. L5-S1: Disc osteophyte complex with endplate ridging. Impingement on the traversing RIGHT greater katarina n LEFT S1 nerve roots. Severe RIGHT and mild LEFT foraminal narrowing. Moderate facet arthropathy. Slightly aneurysmal infrarenal abdominal aorta measuring 2.7 x 3.1 cm AP by transverse. Visualized pelvic bony structuares: Normal. Paravertebral soft tissues: Normal. IMPRESSION: 1. Mild lumbar curve. No acute compression. 2. Moderate narrowing of the thecal sac L2-L3 and moderate to severe L3-L4 due to facet arthropathy with ligamentum flavum hypertrophy and prominent epidural fat. Associated crowding of the cauda equin a nerve rootlets. 3. Mild central canal stenosis L4-5. 4. Disc osteophyte complex L5-S1 impinges the traversing RIGHT S1 nerve root in the subarticular rec ess. 5. Moderate to severe RIGHT L5-S1 foraminal narrowing. 6. Moderate LEFT L3-4 foraminal narrowing. 7. Disc osteophyte protrusions C5-C6 and C6-C7 with slight indentation on the cervical cord and mild central canal stenosis. This could be further evaluated with cervical spine MRI. 8. Small disc protrusion in the thoracic spine with slight contact of the thoracic cord at T8-T9.
== END 2023-03-19 07:39 | disposition home or self-care (01) ==
LOC: RAD 07:38
PROVIDERS: PCP Physician Assistant; Visit Provider Physician Assistant
DX: M48.062 Spinal stenosis, lumbar region with neurogenic claudication (principal); M48.07 Spinal stenosis, lumbosacral region; M47.817 Spondylosis without myelopathy or radiculopathy, lumbosacral region; M25.78 Osteophyte, vertebrae; M50.222 Other cervical disc displacement at C5-C6 level; M51.24 Other intervertebral disc displacement, thoracic region
CPT/HCPCS: 72148

== ENCOUNTER → 2023-05-29 14:21 | Outpatient (BNVA) | payer MEDICARE, SELFPAY | PROVIDERS: PCP Physician Assistant; Visit Provider Orthopaedic Surgery | DX: M48.062 Spinal stenosis, lumbar region with neurogenic claudication (principal); M41.56 Other secondary scoliosis, lumbar region | CPT/HCPCS: 72100; 99214 ==

== ENCOUNTER → 2023-07-03 09:28 | Outpatient (BNVA) | payer MEDICARE, SELFPAY | PROVIDERS: PCP Physician Assistant; Visit Provider Anesthesiology Pain Medicine | DX: M48.062 Spinal stenosis, lumbar region with neurogenic claudication (principal); M47.816 Spondylosis without myelopathy or radiculopathy, lumbar region | CPT/HCPCS: 99204 ==

== ENCOUNTER 2023-07-08 12:44 | Emergency (ER) | payer MEDICARE, SELFPAY ==
[2023-07-08 12:50] VITALS: BP 194/80; PULSE 86; RESP 18; TEMP 36.5; O2SAT 96; BMI 21.7
[2023-07-08 12:58] LABS: Glucose Point of Care 149 mg/dL (70-110)
--- NOTE | 2023-07-08 13:18 | ED_ITS ---
HPI - Recheck/Abnormal Lab/Rx 2 General: Chief Complaint: Recheck/Abnormal Lab/Rx Stated Complaint: High blood pressure / Low sugar Time Seen by Provider: 07/08/23 13:16 History of Present Illness: 68-[facility] complaints of elevated blood pressure and elevated blood glucose levels. He states he is a type I diabetic but has not been checking his blood glucose because he feels like he has not been having any recent issues. He states that he noticed that his blood pressure was elevated today became concerned and decided to come to the emergency department to be evaluated. He denies shortness of breath, chest pain, nausea or vomiting. He does endorse intermittent dizziness. Review of Systems 2 General: Reports: 10 or more systems reviewed and unremarkable except in HPI and below Const: Reports: fatigue and malaise Neuro: Reports: dizziness Endo: Reports: tired all the time Physical Exam 2 Narrative: EXAM NARRATIVE: Constitutional: the patient appears well nourished and with normal development. Vital signs reviewed as documented. HENMT: Normocephalic, atraumatic. External ears normal appearance without drainage. Nose without drainage, normal appearance. Mucus membranes moist. Neck is supple, No jugular venous distension, trachea is midline, no appreciable carotid bruits. No lymphadenopathy. No meningeal signs. Flexion, extension and lateral rotation is without pain. Eyes: Pupils are equal, round, reactive to light and accommodation. No scleral icterus. Extra-ocular movement are intact. Thorax is symmetrical and with equal rise and fall with respirations. Resp: Lungs are clear to auscultation. No wheezes, rales, crackles or ronchi at present. Cardio: Regular rate and rhythm. Positive S1, S2. No appreciable murmurs, rubs or gallops. GI: Abdominal exam reveals normal bowel sounds to all quadrants. No organomegaly. No obvious palpable masses noted. No hepatomegally appreciated. Soft, non-tender to palpation. Extremity: Extremities are non-edematous and both femoral and pedal pulses are 2+ and equal bilaterally. Moves all extremities well, sensation in all extremities. Neuro: Alert and oriented x4, person, place, time and situation. Cranial nerves II through XII are grossly intact, there is no focal neurological deficits that I can appreciate at present. Sensation intact to all extremities. 2-point discrimination intact. Light touch intact to all extremities. Motor strength in the upper and lower extremities are equal and bilateral 5/5. Psych: Cooperative, calm, normal thought process, appropriate judgment. Skin: No lesions, rashes. No gross abnormalities noted. Back: Symmetrical, no obvious deformity, No CVA tenderness Course 2 Reevaluation(s): Reevaluation #1: Repeat evaluation the patient demonstrates that his blood glucose is 149, repeat blood pressure 136/77. Time: 13:51 Vital Signs: Vital signs: Vital Signs Temperature 97.7 F 07/08/23 12:50 Pulse Rate 86 07/08/23 13:56 Respiratory Rate 18 07/08/23 12:50 Blood Pressure 136/77 07/08/23 13:56 Pulse Oximetry 96 07/08/23 13:56 Oxygen Delivery Me thod Room Air 07/08/23 13:56 MDM - Recheck/Abnormal Lab/Rx Medical Decision Making Physical exam completed and documented I will obtain a CBC, CMP serum ketones given his uncontrolled diabetes as well as an EKG given his elevated blood pressure. Medical Records I reviewed the patient's medical records. Lab Data I reviewed the patient's lab results. 07/08/23 13:50 07/08/23 13:50 Laboratory Results WBC 7.76 10^3/uL (3.29-11.43) 07/08/23 13:50 RBC 3.68 10^6/uL (3.85-5.65) L 07/08/23 13:50 Hgb 12.80 g/dL (11.27-16.99) 07/08/23 13:50 Hct 38.4 % (37-53) 07/08/23 13:50 MCV 104.3 fl (82-101) H 07/08/23 13:50 MCH 34.8 pg (27-33) H 07/08/23 13:50 MCHC 33.3 g/dL (30-55) 07/08/23 13:50 RDW 12.9 % (12.1-15.1) 07/08/23 13:50 Plt Count 164 10^3/cmm (157-399) 07/08/23 13:50 MPV 9.6 fL (7.4-10.4) 07/08/23 13:50 Neut % (Auto) 63.0 % 07/08/23 13:50 Lymph % (Auto) 21.8 % 07/08/23 13:50 [place] % (Auto) 8.9 % 07/08/23 13:50 Eos % (Auto) 4.9 % 07/08/23 13:50 Baso % (Auto) 0.9 % 07/08/23 13:50 Neut # (Auto) 4.89 10^3/uL (1.8-7.7) 07/08/23 13:50 Lymph # (Auto) 1.7 10^3/uL (0.8-4.8) 07/08/23 13:50 [place] # (Auto) 0.7 10^3/uL (0.2-0.9) 07/08/23 13:50 Eos # (Auto) 0.4 10^3/uL (0.0-0.8) 07/08/23 13:50 Baso # (Auto) 0.1 10^3/uL (0.0-0.1) 07/08/23 13:50 Nucleated RBC % (auto) 0 % 07/08/23 13:50 Nucleated RBCs # 0.0 /100WBC 07/08/23 13:50 Sodium 138 mmol/L (136-145) 07/08/23 13:50 Potassium 4.0 mmol/L (3.5-5.1) 07/08/23 13:50 Chloride 103 mmol/L (98-107) 07/08/23 13:50 Carbon Dioxide 23 mmol/L (22-29) 07/08/23 13:50 Anion Gap 16.0 (5-19) 07/08/23 13:50 BUN 12 mg/dL (8-23) 07/08/23 13:50 Creatinine 0.7 mg/dL (0.7-1.2) 07/08/23 13:50 GFR Calculation 112.5 mL/min (90-130) 07/08/23 13:50 Glucose 141 mg/dL (65-115) H 07/08/23 13:50 POC Glucose 149 mg/dL (70-110) H 07/08/23 12:53 Calculated Osmolality 288 mOsm/kg (285-295) 07/08/23 13:50 Calcium 8.9 mg/dL (8.5-10.5) 07/08/23 13:50 Total Bilirubin 0.3 mg/dL (0.15-1.2) 07/08/23 13:50 AST 24 U/L (0-40) 07/08/23 13:50 ALT 18 U/L (0-41) 07/08/23 13:50 Alkaline Phosphatase 84 U/L (40-130) 07/08/23 13:50 Total Protein 6.8 g/dL (6.6-8.7) 07/08/23 13:50 Albumin 4.2 g/dL (3.5-5.2) 07/08/23 13:50 Globulin 2.6 g/dL (1.3-4.6) 07/08/23 13:50 Serum Ketones Negative (Negative) 07/08/23 13:50 No radiology studies performed this visit EKG Data EKG 1: Interpretation: Twelve-lead EKG obtained at 1333 reviewed at 1335 demonstrates first-degree AV block underlying sinus rhythm, ventricular rate 73, NV interval 208, QRS duration 101, QT [address] elevation or depression to demonstrate acute ischemia or infarction at present. Discharge Plan Discharge Patient Disposition: Home Clinical Impression: Elevated blood pressure reading, Elevated random blood glucose level Condition: Stable Prescriptions: No Action tizanidine 4 mg tablet 4 mg PO BID PRN (Reason: muscle spasticity) Qty: 60 0RF hydrocodone-acetaminophen 5-325 mg tablet 1 tab PO TID PRN (Reason: pain) 7 Days Qty: 21 0RF atorvastatin 20 mg Tablet 20 mg PO QAM glipizide 5 mg tablet 5 mg PO QAM sildenafil 100 mg tablet 100 mg PO DAILY PRN (Reason: Erectile Dysfunction) Nitrostat 0.4 mg Tablet, Sublingual 0.4 mg SUBLINGUAL Q5M PRN (Reason: Chest Pain) Rx Instructions: do not exceed 3 doses per episode Aspir-81 81 mg Tablet,Delayed Release (Dr/Ec) 162 - 243 mg PO QAM Migraine Relief 250-250-65 mg Tablet 1 - 2 tab PO QAM Discharge Orders: Discharge ED (Routine); Ordered 07/08/23 Ordered By: Dorian Ralph Referrals: Adriana Cardona PA [Primary Care Provider] - Discharge Diet: Diabetic Discharge Activity: Resume usual activity Patient Instructions: Opioid Safety, Pain Management Activity Restrictions/Additional Instructions: Activity Restrictions/Additional Instructions: Thank you for choosing [facility] for your healthcare needs today. Please realize that you were seen in the Emergency Department and that we are providing you with an emergency medical screening exam and this may not be a complete and all inclusive of all the testing and or medical work-up that you may need to determine your ailment or severity of your illness. It is very important that you follow-up as instructed with your Primary care provider or Specialist for additional evaluation and to discuss your medical treatment plan. Coding Level of Care Code ED Audio Visual Aids Director for [facility]
--- NOTE | 2023-07-08 13:33 | ECG_ITS ---
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 Measurements Intervals [place] Rate: 73 P: 67 ME: 208 QRS: -11 QRSD: 101 T: 63 QT: 368 QTc: 408 Interpretive Statements SINUS RHYTHM POSSIBLE LEFT ATRIAL ENLARGEMENT [-0.1mV P-WAVE IN V1/V2] INCOMPLETE RIGHT BUNDLE BRANCH BLOCK [90+ ms QRS DURATION, TERMINAL R IN V1/V2, 40+ ms S IN I/aVL/V4/V5/V6] SEPTAL MYOCARDIAL INFARCTION , OF INDETERMINATE AGE [40+ ms Q WAVE IN V1/V2] Compared to ECG 11/07/2017 16:28:22 Incomplete right bundle-branch block now present Myocardial infarct finding now present Electronically Signed On 07-08-2023 23:52:35 CDT by Omero Bray M.D. [id number]
[2023-07-08 13:56] VITALS: BP 136/77; PULSE 86; O2SAT 96
[2023-07-08 13:59] LABS: Basophils # 0.1 10^3/uL (0.0-0.1); Basophils % 0.9 %; Eosinophils # 0.4 10^3/uL (0.0-0.8); Eosinophils % 4.9 %; Hematocrit 38.4 % (37-53); Lymphocytes # 1.7 10^3/uL (0.8-4.8); Lymphocytes % 21.8 %; Mean Corpuscular HGB Conc 33.3 g/dL (30-55); Mean Corpuscular Hemoglobin 34.8 pg (27-33); Mean Corpuscular Volume 104.3 fl (82-101); Mean Platelet Volume 9.6 fL (7.4-10.4); Monocytes # 0.7 10^3/uL (0.2-0.9); Monocytes % 8.9 %; Neutrophils # 4.89 10^3/uL (1.8-7.7); Nucleated Red Blood Cells % 0 %; Platelet Count 164 10^3/cmm (157-399); Red Blood Count 3.68 10^6/uL (3.85-5.65); Red Cell Distribution Width 12.9 % (12.1-15.1); White Blood Count 7.76 10^3/uL (3.29-11.43)
[2023-07-08 14:09] LABS: Ketone (Acetest) Serum Negative (Negative)
[2023-07-08 14:17] LABS: Alanine Aminotransferase 18 U/L (0-41); Albumin Level 4.2 g/dL (3.5-5.2); Alkaline Phosphatase 84 U/L (40-130); Aspartate Amino Transferase 24 U/L (0-40); Blood Urea Nitrogen 12 mg/dL (8-23); Calcium 8.9 mg/dL (8.5-10.5); Carbon Dioxide 23 mmol/L (22-29); Chloride 103 mmol/L (98-107); Creatinine Clr Calc Pharmacy 98.6985; Globulin 2.6 g/dL (1.3-4.6); Glomerular Filtration Rate 112.5 mL/min (90-130); Glucose 141 mg/dL (65-115); Osmolality Calculated 288 mOsm/kg (285-295); Sodium 138 mmol/L (136-145); Total Bilirubin 0.3 mg/dL (0.15-1.2); Total Protein 6.8 g/dL (6.6-8.7)
== END 2023-07-08 14:44 | disposition home or self-care (01) ==
PROVIDERS: Emergency Provider Internal Medicine; PCP Physician Assistant
DX: R03.0 Elevated blood-pressure reading, without diagnosis of hypertension (principal); E10.9 Type 1 diabetes mellitus without complications; Z79.82 Long term (current) use of aspirin; Z79.84 Long term (current) use of oral hypoglycemic drugs; I44.0 Atrioventricular block, first degree
CPT/HCPCS: 36416; 80053; 82009; 82962; 85025; 93005; 99284

== ENCOUNTER → 2023-07-12 13:24 | Outpatient (BNVA) | payer MEDICARE, SELFPAY | PROVIDERS: PCP Physician Assistant; Visit Provider Anesthesiology Pain Medicine | DX: M79.18 Myalgia, other site (principal); M48.062 Spinal stenosis, lumbar region with neurogenic claudication | CPT/HCPCS: 20553; 99213; J1030; J3490 ==

== ENCOUNTER → 2023-09-11 10:52 | Outpatient (BNVA) | payer MEDICARE, SELFPAY | PROVIDERS: PCP Physician Assistant; Visit Provider Anesthesiology Pain Medicine | DX: M48.062 Spinal stenosis, lumbar region with neurogenic claudication (principal) | CPT/HCPCS: 99214 ==

== ENCOUNTER 2023-09-24 10:48 | Outpatient (CLI) | payer MEDICARE, SELFPAY ==
--- NOTE | 2023-09-24 10:57 | CT_ITS ---
WS: [id number] LDCT LUNG CANCER SCREENING TECHNIQUE: Noncontrast CT of the chest with coronal and sagittal reformatted images. CLINICAL INFORMATION: HX OF TOBACCO USE/NICOTINE DEPENDENCE, CIGARETTES COMPARISON: None. DLP: 66.51 mGy.cm DIvol: Mean CTDIvol: 1.30 (mGy) All CT scans at [facility] use at least one of these dose optimization techniques: automat ed exposure control; mA and/or kV adjustment per patient size (includes targeted exams where dose is matched to clinical indication); or iterative reconstruction. FINDINGS: Calcified granulomas LEFT upper lobe. Biapical fibrosis. Bibasal atelectasis. No other susp icious pulmonary gland amount is. Normal thyroid gland. Aortic calcification. Normal caliber thoracic aorta. Coronary calcification. Ca lcified mediastinal lymph nodes. Small esophageal hiatal hernia. No axillary lymphadenopathy. Mild thoracic curve. Mild thoracic kyphosis. Disc osteophyte complex with ossification of the posteri or longitudinal ligament midthoracic spine at T8-9 unchanged since 2018. Mild central canal stenosis. CT/CT lung screening [id number] IMPRESSION: LUNG-RADS: 2-Benign Appearance or Behavior FOLLOW UP: 12 Month: Continue annual screening with LDCT
== END 2023-09-24 10:49 | disposition home or self-care (01) ==
LOC: RAD 10:48
PROVIDERS: PCP Physician Assistant; Visit Provider Physician Assistant
DX: Z13.83 Encounter for screening for respiratory disorder NEC (principal); Z87.891 Personal history of nicotine dependence
CPT/HCPCS: 71271

== ENCOUNTER 2024-06-02 08:57 | Outpatient (CLI) | payer OTHER, SELFPAY ==
--- NOTE | 2024-06-02 09:30 | MR_ITS ---
WS: [id number] MRI LUMBAR SPINE NONCONTRAST TECHNIQUE: Sagittal T1, T2 and STIR imaging. Axial T1 and T2 imaging. CLINICAL INFORMATION: SPINAL STENOSIS, LUMBAR REGION COMPARISON: MRI 03/19/2023 FINDINGS: Lumbar scoliosis. No acute compression. Slight retrolisthesis L1 on L2, L2 on L3, and L3 on L4. Multilevel central canal stenosis. Prominent epidural fat contributes to stenosis. L1-L2: Mild central canal stenosis. Small central protrusion. Moderate RIGHT foraminal narrowing. Moderate facet arthropathy. L2-L3: Moderate narrowing of the thecal sac with crowding of the cauda equina nerve rootlets. Prominent epidural fat with facet arthropathy and ligamentum flavum hypertrophy. Moderate LEFT foraminal narrowing. L3-L4: Moderate to severe narrowing of the thecal sac. Prominent epidural fat. Facet arthropathy with ligamentum flavum hypertrophy. LEFT foraminal protrusion with severe LEFT foraminal narrowing. Mild RIGHT foraminal narrowing. L4-L5: Mild annular bulging. Mild narrowing of the thecal sac. Mild LEFT greater than RIGHT foraminal narrowing. Moderate facet arthropathy. L5-S1: RIGHT paracentral protrusion. Slight indentation on the on the traversing RIGHT S1 nerve root. Severe RIGHT foraminal narrowing. Moderate to advanced facet arthropathy. Slightly ectatic abdominal aorta unchanged. This measures 2.7 x 3.1 cm. Visualized pelvic bony structures: Normal. Paravertebral soft tissues: Normal. MR/MR lumbar spine wo con* [id number] IMPRESSION: 1. Overall no significant changes compared to 03/19/2023. 2. Persistent moderate to severe narrowing of the thecal sac at L2-L3 and L3-L 4 due to disc bulging with facet arthropathy and ligamentum flavum hypertrophy in combination with prominent epidural fat. 3. Severe LEFT L3-4 foraminal narrowing with LEFT foraminal protrusion. 4. Moderate LEFT L4-5 and severe RIGHT L5-S1 foraminal narrowing. 5. Disc osteophyte complex L5-S1 impinges the traversing RIGHT S1 nerve root i n the subarticular recess.
== END 2024-06-02 08:58 | disposition home or self-care (01) ==
PROVIDERS: PCP Physician Assistant; Visit Provider Physician Assistant
DX: M48.062 Spinal stenosis, lumbar region with neurogenic claudication (principal); R93.7 Abnormal findings on diagnostic imaging of other parts of musculoskeletal system; M51.369 Other intervertebral disc degeneration, lumbar region without mention of lumbar back pain or lower extremity pain; M47.896 Other spondylosis, lumbar region; M48.07 Spinal stenosis, lumbosacral region; M25.78 Osteophyte, vertebrae; M41.86 Other forms of scoliosis, lumbar region; M51.26 Other intervertebral disc displacement, lumbar region; M51.27 Other intervertebral disc displacement, lumbosacral region; M47.897 Other spondylosis, lumbosacral region; I77.811 Abdominal aortic ectasia
CPT/HCPCS: 72148

== ENCOUNTER → 2024-06-12 14:46 | Outpatient (BNVA) | payer MEDICARE, SELFPAY | PROVIDERS: PCP Physician Assistant; Visit Provider Orthopaedic Surgery | DX: M48.062 Spinal stenosis, lumbar region with neurogenic claudication (principal) | CPT/HCPCS: 72110; 99214 ==

== ENCOUNTER → 2024-06-23 09:30 | Outpatient (BNVA) | payer MEDICARE, SELFPAY | PROVIDERS: PCP Physician Assistant; Referring Provider Orthopaedic Surgery; Visit Provider Anesthesiology Pain Medicine | DX: M48.062 Spinal stenosis, lumbar region with neurogenic claudication (principal); F17.200 Nicotine dependence, unspecified, uncomplicated | CPT/HCPCS: 99214 ==

== ENCOUNTER → 2024-07-22 09:12 | Outpatient (BNVA) | payer MEDICARE, SELFPAY | PROVIDERS: PCP Physician Assistant; Visit Provider Anesthesiology Pain Medicine | DX: M48.062 Spinal stenosis, lumbar region with neurogenic claudication (principal); F17.200 Nicotine dependence, unspecified, uncomplicated | CPT/HCPCS: 99214 ==

== ENCOUNTER → 2024-07-30 09:23 | Outpatient (BNVA) | payer MEDICARE, SELFPAY | PROVIDERS: PCP Physician Assistant; Visit Provider Anesthesiology Pain Medicine | DX: M54.16 Radiculopathy, lumbar region (principal); M48.062 Spinal stenosis, lumbar region with neurogenic claudication | CPT/HCPCS: 62323; J1010; J9999 ==

== ENCOUNTER → 2024-08-12 10:22 | Outpatient (BNVA) | payer MEDICARE, SELFPAY | PROVIDERS: PCP Physician Assistant; Visit Provider Anesthesiology Pain Medicine | DX: M48.062 Spinal stenosis, lumbar region with neurogenic claudication (principal) | CPT/HCPCS: 99214 ==

== ENCOUNTER 2024-09-23 11:33 | Outpatient (CLI) | payer MEDICARE, SELFPAY ==
--- NOTE | 2024-09-23 11:39 | CT_ITS ---
WS: [id number] LDCT LUNG CANCER SCREENING HISTORY: NICOTINE DEPENDENCE, CIGARETTES TECHNIQUE: Axial imaging performed from the apices to 1 cm below the costophrenic angles. Coronal and sagittal reformats are submitted with axial MIP series. All CT scans at [facility] use at least one of these dose optimization techniques: automated exposure control; mA and/or kV adjustment per patient size (includes targeted exams where dose is matched to clinical indication); or iterative reconstruction. DLP: 62.49 mGy.cm DIvol: Mean CTDIvol: 1.10 (mGy) COMPARISON: 09/24/2023 Diagnostic quality: Satisfactory Lungs: Biapical pleural thickening and fibrosis. RIGHT upper lobe calcified granuloma. Stable subsolid nodule 4 mm RIGHT upper lobe, image 87 series 4. Benign coarse granuloma LEFT upper lobe. No mass or endobronchial lesions. Heart: Normal size heart with no pericardial effusion.. Coronary artery calcifications. Other findings: Densely calcified mediastinal and hilar lymph nodes. No pathologically enlarged lymph nodes. Mild atherosclerosis aorta. Normal size pulmonary artery. Small hiatal hernia. No adrenal mass. Mild increase in thoracic kyphosis. Calcification along the posterior longitudinal ligament at T8-9 with mild contact of the ventral canal. CT/CT lung screening [id number] IMPRESSION: LUNG-RADS: 2-Benign Appearance or Behavior FOLLOW UP: 12 Month: Continue annual screening with LDCT OTHER FINDINGS (S MODIFIER): None.
== END 2024-09-23 11:34 | disposition home or self-care (01) ==
PROVIDERS: PCP Physician Assistant; Visit Provider Physician Assistant
DX: Z12.2 Encounter for screening for malignant neoplasm of respiratory organs (principal); F17.210 Nicotine dependence, cigarettes, uncomplicated; J92.9 Pleural plaque without asbestos; J84.10 Pulmonary fibrosis, unspecified; R91.1 Solitary pulmonary nodule; I25.10 Atherosclerotic heart disease of native coronary artery without angina pectoris; R59.0 Localized enlarged lymph nodes; I70.0 Atherosclerosis of aorta; K44.9 Diaphragmatic hernia without obstruction or gangrene; M40.294 Other kyphosis, thoracic region; R93.7 Abnormal findings on diagnostic imaging of other parts of musculoskeletal system
CPT/HCPCS: 71271

== ENCOUNTER → 2024-09-25 07:48 | Outpatient (BNVA) | payer MEDICARE, SELFPAY | PROVIDERS: PCP Physician Assistant; Visit Provider Orthopaedic Surgery | DX: M48.062 Spinal stenosis, lumbar region with neurogenic claudication (principal) | CPT/HCPCS: 99213 ==

== ENCOUNTER → 2024-11-10 08:58 | Outpatient (BNVA) | payer MEDICARE, SELFPAY | PROVIDERS: PCP Physician Assistant; Visit Provider Anesthesiology Pain Medicine | DX: M48.062 Spinal stenosis, lumbar region with neurogenic claudication (principal) | CPT/HCPCS: 99214 ==

== ENCOUNTER → 2024-11-26 14:20 | Outpatient (BNVA) | payer MEDICARE, SELFPAY | PROVIDERS: PCP Physician Assistant; Visit Provider Anesthesiology Pain Medicine | DX: M54.16 Radiculopathy, lumbar region (principal); M48.062 Spinal stenosis, lumbar region with neurogenic claudication; M54.9 Dorsalgia, unspecified | CPT/HCPCS: 62323; J1010; J9999 ==

== ENCOUNTER → 2025-01-20 07:43 | Outpatient (BNVA) | payer MEDICARE, SELFPAY | PROVIDERS: PCP Physician Assistant; Visit Provider Dermatology | DX: L21.8 Other seborrheic dermatitis (principal); L82.1 Other seborrheic keratosis; D69.2 Other nonthrombocytopenic purpura; D48.5 Neoplasm of uncertain behavior of skin; L57.0 Actinic keratosis | CPT/HCPCS: 11102; 17000; 99204 ==

== ENCOUNTER → 2025-02-23 08:35 | Outpatient (BNVA) | payer MEDICARE, SELFPAY | PROVIDERS: PCP Physician Assistant; Visit Provider Dermatology | DX: L57.8 Other skin changes due to chronic exposure to nonionizing radiation (principal); L57.0 Actinic keratosis | CPT/HCPCS: 17000; 99212 ==